=== PATIENT | female | born 1995 | race Caucasian/White ===

== ENCOUNTER 2016-11-19 12:07 | Emergency (ER) | payer MEDICAID ==
[2016-11-19] MEDS ORDERED: SODIUM CHLORIDE 0.9% 1,000 ML IV STA (14:02)
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
[2016-11-19 14:39] LABS: Basophils % (A) 1 %; CHCM 34.4; Eosinophils # (A) 0.1 k/uL (0-0.7); Eosinophils % (A) 3 %; HCT 41.6 % (34.0-46.0); HDW 2.29; HGB 14.2 gm/dL (11.4-16.0); Luc # (Auto) 0.11; Luc % (Auto) 2; Lymphocytes # (A) 1.9 k/uL (1.0-4.8); Lymphocytes % (A) 36 %; MCH 28.8 pg (25.0-35.0); MCHC 34.1 g/dL (31.0-37.0); MCV 84.5 fL (80.0-100.0); Mean Platelet Volume 8.8; Monocytes # (A) 0.3 k/uL (0-1.0); Monocytes % (A) 5 %; Neutrophils # (A) 2.7 k/uL (1.3-7.7); Neutrophils % (A) 54 %; RBC 4.92 m/uL (3.80-5.40); RDW 13.4 % (11.5-15.5); WBC 5.1 k/uL (3.8-10.6); WBC (Perox) 4.92
[2016-11-19 14:40] LABS: Appearance,Urine Clear (Clear); Bilirubin,Urine Negative (Negative); Glucose,Urine (UA) Negative (Negative); Ketones,Urine Negative (Negative); Leukocyte Esterase,Urine Negative (Negative); Nitrite,Urine Negative (Negative); PH, Urine 7.5 (5.0-8.0); Protein,Urine Negative (Negative); Specific Gravity,Urine 1.005 (1.001-1.035); UA Billing (MACRO vs. MICRO) CHEM; Urobilinogen,Urine <2.0 mg/dL (<2.0)
[2016-11-19 14:49] LABS: ALT 33 U/L (9-52); AST 23 U/L (14-36); Alkaline Phosphatase 56 U/L (38-126); Anion Gap 10 mmol/L; Blood Urea Nitrogen 7 mg/dL (7-17); Calcium 9.4 mg/dL (8.4-10.2); Carbon Dioxide 22 mmol/L (22-30); Chloride 109 mmol/L (98-107); Glucose 94 mg/dL (74-99); Non-African American GFR(MDRD) >60 (>60 ml/min/1.73 sqM); Potassium 4.3 mmol/L (3.5-5.1); Sodium 141 mmol/L (137-145); Total Bilirubin 0.3 mg/dL (0.2-1.3); Total Protein 7.4 g/dL (6.3-8.2)
[2016-11-19 15:28] VITALS: BP 115/66; PULSE 67; RESP 18; TEMP 98.7
== END 2016-11-19 15:26 | disposition home or self-care (01) ==
LOC: EC 12:07
DX: R42 Dizziness and giddiness (principal); R55 Syncope and collapse; R51 Headache; J34.89 Other specified disorders of nose and nasal sinuses; Z79.51 Long term (current) use of inhaled steroids; Z79.899 Other long term (current) drug therapy; Z79.3 Long term (current) use of hormonal contraceptives
CPT/HCPCS: 36415; 80053; 81003; 81025; 85025; 87040; 87086; 93005; 96360; 99284

== ENCOUNTER → 2016-11-25 | Outpatient (CLI) | payer MEDICAID ==
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
== END | disposition home or self-care (01) ==
LOC: RADCTMAIN 19:25
PROVIDERS: ATTEND Internal Medicine
DX: R55 Syncope and collapse (principal)
CPT/HCPCS: 70470; Q9967

== ENCOUNTER → 2017-10-08 | Outpatient (CLI) | payer MEDICAID ==
[2017-10-08 10:01] LABS: Basophils % (A) 1 %; Eosinophils # (A) 0.1 k/uL (0-0.7); Eosinophils % (A) 2 %; HCT 40.4 % (34.0-46.0); HGB 13.6 gm/dL (11.4-16.0); Lymphocytes # (A) 2.3 k/uL (1.0-4.8); Lymphocytes % (A) 43 %; MCH 28.6 pg (25.0-35.0); MCHC 33.7 g/dL (31.0-37.0); MCV 84.8 fL (80.0-100.0); Mean Platelet Volume 7.8; Monocytes # (A) 0.3 k/uL (0-1.0); Monocytes % (A) 5 %; Neutrophils # (A) 2.5 k/uL (1.3-7.7); Neutrophils % (A) 48 %; Platelet Count 181 k/uL (150-450); RBC 4.76 m/uL (3.80-5.40); WBC 5.3 k/uL (3.8-10.6)
[2017-10-08 10:25] LABS: ALT 29 U/L (9-52); AST 28 U/L (14-36); Albumin 4.2 g/dL (3.5-5.0); Alkaline Phosphatase 54 U/L (38-126); Anion Gap 10 mmol/L; Blood Urea Nitrogen 12 mg/dL (7-17); Calcium 9.3 mg/dL (8.4-10.2); Carbon Dioxide 24 mmol/L (22-30); Chloride 107 mmol/L (98-107); Cholesterol 160 mg/dL (<200); Glucose 94 mg/dL (74-99); HDL Cholesterol 50 mg/dL (40-60); LDL Cholesterol,Calculated 92 mg/dL (0-99); Potassium 4.4 mmol/L (3.5-5.1); Sodium 141 mmol/L (137-145); Total Bilirubin 0.4 mg/dL (0.2-1.3); Total Protein 6.9 g/dL (6.3-8.2); Triglycerides 92 mg/dL (<150)
== END | disposition home or self-care (01) ==
LOC: LABWHC1 09:21
DX: Z00.00 Encounter for general adult medical examination without abnormal findings (principal)
CPT/HCPCS: 36415; 80053; 80061; 82306; 84443; 85025

== ENCOUNTER → 2021-01-24 | Outpatient (CLI) | payer MEDICAID, OTHER | END | disposition home or self-care (01) | LOC: LABWHC1 16:46 | PROVIDERS: ATTEND Emergency Medicine | DX: Z20.822 Contact with and (suspected) exposure to COVID-19 (principal) | CPT/HCPCS: 87635 ==

== ENCOUNTER → 2021-01-25 | Outpatient (CLI) | payer MEDICAID, OTHER | END | disposition home or self-care (01) | LOC: LABWHC1 16:27 | PROVIDERS: ATTEND Emergency Medicine | DX: Z20.822 Contact with and (suspected) exposure to COVID-19 (principal) | CPT/HCPCS: 87635 ==

== ENCOUNTER 2024-08-08 01:40 | Inpatient (IN) | payer BC ==
[2024-08-08] MEDS ORDERED: OXYTOCIN 10 UNIT/ML 1 ML VIAL IM PRN (02:23)
[2024-08-08] MEDS ORDERED: TRANEXAMIC 1,000 MG/100ML-NACL 1,000 MG in EMPTY BAG 1 BAG IV PRN (02:23)
[2024-08-08] MEDS ORDERED: CARBOPROST TROMETHAMINE 250 MCG/ML 1 ML AMP IM PRN (02:23)
[2024-08-08] MEDS ORDERED: miSOPROStoL 200 MCG TAB PO PRN (02:23)
[2024-08-08] MEDS ORDERED: miSOPROStoL 200 MCG TAB RECTAL PRN (02:23)
[2024-08-08] MEDS ORDERED: TERBUTALINE 1 MG/ML VIAL SQ PRN (02:23)
[2024-08-08] MEDS ORDERED: METHYLERGONOVINE 0.2 MG/ML 1 ML AMP IM PRN (02:23)
[2024-08-08] MEDS ORDERED: OXYTOCIN 30 UNITS/500 ML NS 30 UNIT in SALINE 1 500ML.BAG IV SCH (02:30)
[2024-08-08 02:44] LABS: Basophils # (A) 0.03 10*3/uL (0.00-0.10); Basophils % (A) 0.3 %; Eosinophils # (A) 0.12 10*3/uL (0.04-0.35); Eosinophils % (A) 1.1 %; HCT 33.2 % (37.2-46.3); HGB 10.7 g/dL (12.0-15.0); Lymphocytes # (A) 1.77 10*3/uL (0.90-5.00); Lymphocytes % (A) 16.2 %; MCH 26.4 pg (27.0-32.0); MCHC 32.2 g/dL (32.0-37.0); Mean Platelet Volume 11.8 fL (9.5-12.2); Monocytes # (A) 0.84 10*3/uL (0.20-1.00); Monocytes % (A) 7.7 %; Neutrophils # (A) 8.12 10*3/uL (1.80-7.70); Neutrophils % (A) 74.2 %; Platelet Count 219 10*3/uL (140-440); RBC 4.05 10*6/uL (4.10-5.20); RDW 13.2 % (11.5-14.5); WBC 10.93 10*3/uL (4.50-10.00)
[2024-08-08] MEDS ORDERED: ROPIVACAINE 5 MG/ML 30 ML VIAL ONE (02:59)
[2024-08-08] MEDS ORDERED: fentaNYL (PF) 50 MCG/ML 5 ML AMP ONE (02:59)
[2024-08-08] MEDS ORDERED: SODIUM CHLORIDE 0.9% 250 ML BAG ONE (02:59)
[2024-08-08] MEDS: LACTATED RINGERS 1,000 ML IV SCH (03:00)
--- NOTE | 2024-08-08 07:31 | P.HPOB ---
History of Present Illness H&P Date: 08/08/24 Chief Complaint: IUP at 39-6/7 weeks, active labor 29-year-old 1 para 0 at 39-6/7 weeks that presents to labor and delivery with complaints of regular painful contractions. Patient states she had been florentin through the day in addition. Patient denies loss of fluid. Contractions did become more uncomfortable through the night and she presented to labor and delivery and was noted to be 4 cm. Patient has been receiving routine care which has been essentially uncomplicated. On blood work this patient is a blood type of O+, rubella status immune, hepatitis B surface antigen negative, HIV negative, RPR is nonreactive, hepatitis C is nonreactive, grew beta strep culture is negative. Review of Systems Constitutional: Denies chills, Denies fatigue, Denies fever Ears, nose, mouth and throat: Denies headache Cardiovascular: Reports leg edema Respiratory: Denies dyspnea Gastrointestinal: Denies constipation, Denies diarrhea, Denies nausea, Denies vomiting Genitourinary: Reports Past Medical History Additional Past Medical History / Comment(s): scoliosis History of Any Multi-Drug Resistant Organisms: None Reported Past Surgical History: Tonsillectomy Past Psychological History: No Psychological Hx Reported Smoking Status: Never smoker Past Alcohol Use History: Occasional Past Drug Use History: None Reported Medications and Allergies Home Medications Medication Instructions Recorded Confirmed Type Cetirizine HCl [Zyrtec] 10 mg PO DAILY PRN 11/19/16 08/08/24 History Aspirin [Adult Low Dose Aspirin EC] 81 mg PO DAILY 08/08/24 08/08/24 History Vit No.179/Iron/Folic 1 tab PO DAILY 08/08/24 08/08/24 History [ Tablet] Allergies Allergy/AdvReac Type Severity Reaction Status Date / Time No Known Allergies Allergy Verified 07/20/24 08:07 Exam Osteopathic Statement: *. No significant issues noted on an osteopathic structural exam other than those noted in the History and Physical/Consult. Vital Signs Temp Pulse Resp BP Pulse Ox 08/08/24 01:49 96.6 F L 97 16 129/80 97 Intake and Output 08/07/24 08/08/24 08/08/24 22:59 06:59 14:59 Output Total 200 Balance -200 Output: Urine 200 Other: Weight 102.058 kg Targeted physical exam is performed this date in general is a well-nourished well-developed female in no acute distress, patient did receive an epidural for analgesia through the night. Breathing appears nonlabored, abdomen is gravid, heart tones are noted to be category 1 she is florentin every 1 to 3 minutes. On cervical exam she is 9/100/0 station amniotomy is performed and copious clear fluid is obtained. Results Result Diagrams: 08/08/24 02:00 Abnormal Lab Results - Last 24 Hours (Table) 08/08/24 Range/Units 02:00 WBC 10.93 H (4.50-10.00) 10*3/uL RBC 4.05 L (4.10-5.20) 10*6/uL Hgb 10.7 L (12.0-15.0) g/dL Hct 33.2 L (37.2-46.3) % MCH 26.4 L (27.0-32.0) pg Immature Gran # 0.05 H (0.00-0.04) 10*3/uL Neutrophils # 8.12 H (1.80-7.70) 10*3/uL Assessment and Plan (1) Term Current Visit: Yes Status: Acute Code(s): Z34.90 - ENCNTR FOR SUPRVSN OF NORMAL , UNSP, UNSP TRIMESTER SNOMED Code(s): 98298923 (2) Active labor Current Visit: Yes Status: Acute Code(s): UYM6971 - SNOMED Code(s): 908102945 Plan: Admit to labor and delivery, CFM/toco epidural placed by anesthesia through the night Anticipate spontaneous vaginal delivery
[2024-08-08] MEDS ORDERED: diphenhydrAMINE 25 MG CAP PO PRN (11:26)
[2024-08-08] MEDS ORDERED: HYDROCORTISONE 2.5% RECTAL CREAM 30 GM TUBE RECTAL PRN (11:26)
[2024-08-08] MEDS ORDERED: BENZOCAINE/MENTHOL SPRAY 1 GM/SPRAY AEROSOL TOPICAL PRN (11:26)
[2024-08-08] MEDS ORDERED: ZOLPIDEM 5 MG TAB PO PRN (11:26)
[2024-08-08] MEDS ORDERED: SIMETHICONE 80 MG CHEWABLE PO PRN (11:26)
[2024-08-08] MEDS ORDERED: diphenhydrAMINE 50 MG CAP PO PRN (11:26)
[2024-08-08] MEDS ORDERED: LANOLIN CREAM 1 GM TUBE TOPICAL PRN (11:26)
[2024-08-08] MEDS ORDERED: diphenhydrAMINE 50 MG/ML 1 ML VIAL IVP PRN ×2 (11:26)
--- NOTE | 2024-08-08 11:30 | P.PROBDLV ---
Vaginal Delivery Note - . Vaginal Delivery Note: Date of service 08/08/2024 Findings viable male delivered at 1110, weight of 9 pounds 4 ounces, Apgars of 9 and 9 at 1 and 5 minutes respectively. 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 Patient was admitted to labor and delivery and noted to be 4+ centimeters, patient did desire epidural and this was placed by the anesthesia department. Patient made good progress toward complete dilation. Patient underwent amniotomy and copious clear fluid was obtained. Patient began pushing and with excellent maternal effort had a normal spontaneous vaginal delivery of a viable male infant at 1110, weight of 9 pounds 4 ounces, Apgars of 9 and 9 at 1 and 5 minutes respectively. Midline episiotomy was performed prior to delivery of the head. After 2-minute delay the umbilical cord was doubly clamped and cut, spontaneous cry was noted at . Placenta was delivered spontaneously intact with a three-vessel cord being noted. Uterus was noted to be firm and below the umbilicus. On inspection the patient's vaginal vault midline second-degree episiotomy was appreciated this was injected with lidocaine and repaired in the usual fashion with 3-0 Rapide. After closure hemostasis was appreciated. All counts noted be correct x 2 after closure. Bladder had been drained during pushing for 200 cc of concentrated urine. Estimated blood loss 200 cc Patient and tolerated delivery well and are resting comfortably All counts were correct x 2 at the end of the delivery
[2024-08-08] MEDS: LIDOCAINE 0.5% (PF) 5 MG/ML (50 ML SDV) SQ PRN (11:41)
[2024-08-08] MEDS: IBUPROFEN 800 MG TAB PO SCH (11:56)
[2024-08-08] MEDS: ACETAMINOPHEN TAB 500 MG TAB PO SCH (18:48)
[2024-08-08] MEDS: SENNOSIDES-DOCUSATE SODIUM 1 EACH TAB PO SCH (19:48)
[2024-08-08 20:31] VITALS: RESP 16
[2024-08-09 04:28] LABS: Basophils # (A) 0.04 10*3/uL (0.00-0.10); Basophils % (A) 0.3 %; Eosinophils # (A) 0.14 10*3/uL (0.04-0.35); Eosinophils % (A) 1.1 %; HCT 26.4 % (37.2-46.3); Lymphocytes # (A) 2.25 10*3/uL (0.90-5.00); Lymphocytes % (A) 17.6 %; MCH 26.9 pg (27.0-32.0); MCHC 32.6 g/dL (32.0-37.0); MCV 82.5 fL (80.0-97.0); Mean Platelet Volume 11.6 fL (9.5-12.2); Monocytes # (A) 0.98 10*3/uL (0.20-1.00); Monocytes % (A) 7.7 %; Neutrophils # (A) 9.32 10*3/uL (1.80-7.70); Neutrophils % (A) 72.8 %; Platelet Count 173 10*3/uL (140-440); RDW 13.4 % (11.5-14.5)
[2024-08-09 04:30] LABS: HGB 8.6 g/dL (12.0-15.0)
--- NOTE | 2024-08-09 08:38 | P.DS ---
Providers Date of admission: 08/08/24 01:40 Expected date of discharge: 08/09/24 Attending physician: Shannon Jarrell Primary care physician: Rowan Solorio - Discharge Diagnosis(es) (1) Term Current Visit: Yes Status: Acute (2) Active labor Current Visit: Yes Status: Acute (3) Status post vaginal delivery Current Visit: Yes Status: Acute (4) Obstetrical laceration, second degree Current Visit: Yes Status: Acute Hospital Course: 29-year-old 1 para 0 that presented to labor and delivery in active labor at 39-6/7 weeks. For full details in this patient please see the dictated history and physical. Patient was admitted to labor and delivery. Patient progressed to labor becoming uncomfortable and requesting epidural. Epidural was placed without difficulty by the anesthesia department. Patient underwent amniotomy copious clear fluid was obtained. At that time patient was noted to be 9 cm. Patient progressed to complete began pushing and had a normal spontaneous vaginal delivery over midline episiotomy viable male , weight of 9 pounds 4 ounces. Second-degree episiotomy was repaired in the usual fashion after delivery. Patient's course has been uneventful. In this day #1 she is ambulating and voiding without difficulty. She is tolerating regular diet without nausea or vomiting. States her pain is well-controlled. She denies concerns. She would like discharge home later today. Patient Condition at Discharge: Good Plan - Discharge Summary New Discharge Prescriptions: No Action Cetirizine HCl [Zyrtec] 10 mg PO DAILY PRN PRN Reason: Allergy Symptoms Vit No.179/Iron/Folic [ Tablet] 1 tab PO DAILY Aspirin [Adult Low Dose Aspirin EC] 81 mg PO DAILY Discharge Medication List Cetirizine HCl [Zyrtec] 10 mg PO DAILY PRN 11/19/16 [History] Aspirin [Adult Low Dose Aspirin EC] 81 mg PO DAILY 08/08/24 [History] Vit No.179/Iron/Folic [ Tablet] 1 tab PO DAILY 08/08/24 [History] Follow up Appointment(s)/Referral(s): Shannon Jarrell DO [Doctor of Osteopathic Medicine] - 09/19/24 11:30 am Patient Instructions/Handouts: Vaginal Delivery (DC), Vaginal Delivery (GEN) Activity/Diet/Wound Care/Special Instructions: [id number] ibuprofen 600 mg or 3 tablets every 6 hours as needed for pain. Routine check in 6 weeks. Should she have any concerns prior to this appointment she is urged to call the office. No tub baths or intercourse until 6 weeks . Discharge Disposition: HOME SELF-CARE
[2024-08-09 09:13] VITALS: BP 112/65; PULSE 85; TEMP 97.4
== END 2024-08-09 12:37 | disposition home or self-care (01) | DRG 807 ==
LOC: 4FBP 01:40 → MERGE 08-09 16:44
PROVIDERS: ADMIT Obstetrics & Gynecology Obstetrics; ATTEND Obstetrics & Gynecology Obstetrics
PROC: 10E0XZZ Delivery of Products of Conception, External Approach (ICD-10-PCS; principal; 2024-08-08)
PROC: 10907ZC Drainage of Amniotic Fluid, Therapeutic from Products of Conception, Via Natural or Artificial Opening (ICD-10-PCS; 2024-08-08)
PROC: 0W8NXZZ Division of Female Perineum, External Approach (ICD-10-PCS; 2024-08-08)
DX: O26.893 Other specified pregnancy related conditions, third trimester (principal); Z37.0 Single live birth; M41.9 Scoliosis, unspecified; O70.1 Second degree perineal laceration during delivery; Z3A.39 39 weeks gestation of pregnancy; Z79.82 Long term (current) use of aspirin
CPT/HCPCS: 85025; 86850; 86900; 86901